=== PATIENT | male | born 1995 | race Caucasian/White ===

== ENCOUNTER 2016-12-26 10:20 | Emergency (ER) | payer MEDICAID ==
[~2016-12-26] VITALS: Ht 167.6 cm; Wt 78.0 kg
[2016-12-26] MEDS ORDERED: KETOROLAC 30MG/ML VIAL IV ONE (11:15)
[2016-12-26 13:20] VITALS: BP 125/70
== END 2016-12-26 14:18 | disposition home or self-care (01) ==
LOC: ER 14:12
DX: R07.89 Other chest pain (principal)
CPT/HCPCS: 71010; 93005; 96374; 99284; J1885; Z7610